=== PATIENT | male | born 1995 | race African-American/Black ===

== ENCOUNTER 2016-12-21 12:27 | Emergency (ER) | payer OTHER ==
[2016-12-21] MEDS ORDERED: CLINDAMYCIN 600 MG/50 ML PREMIX BAG As Ordered ONE (13:13)
[2016-12-21] MEDS ORDERED: methylPREDNISolone INJ 40 MG/1 ML VIAL (J2920) As Ordered ONE (13:13)
[2016-12-21] MEDS ORDERED: ISOVUE-370 76% 100ML VIAL (Q9967) As Ordered ONE (13:23)
[2016-12-21 13:26] LABS: BASO % 0.5 % (0.0-1.0); EOS # 0.1 K/mm3 (0.0-0.50); EOS % 1.8 % (0.0-3.0); LARGE UNSTAINED CELL # 0.2 K/mm3 (0.0-0.4); LARGE UNSTAINED CELL % 4.1 % (0.0-4.0); LYMPH # 1.1 K/mm3 (1.5-6.5); LYMPH % 18.3 % (24.0-44.0); MEAN CORPUSCULAR HEMOGLOBIN 30.2 pg (27.0-33.0); MEAN CORPUSCULAR VOLUME 88.9 fl (80.0-96.0); MONO # 0.6 K/mm3 (0.0-0.8); MONO % 10.5 % (0.0-5.0); NEUTROPHILS # 3.9 K/mm3 (1.8-7.7); NEUTROPHILS % 64.9 % (36.0-66.0); PLATELET COUNT, AUTOMATED 239 k/mm3 (150-450); RED CELL DISTRIBUTION WIDTH 11.2 % (11.5-14.5)
[2016-12-21 13:45] LABS: ANION GAP 5 MEQ/L (8-16); BLOOD UREA NITROGEN 11 MG/DL (7-18); CARBON DIOXIDE LEVEL 34 MEQ/L (21-32); CHLORIDE LEVEL 102 MEQ/L (98-107); GLOMERULAR FILTRATION RATE > 60.0 (>60); GLUCOSE, FASTING 70 MG/DL (70-105); POTASSIUM SERUM 3.8 MEQ/L (3.5-5.1); SODIUM LEVEL 141 MEQ/L (136-145)
[2016-12-21 14:09] LABS: ERYTHROCYTE SEDIMENTATION RATE 23 mm/hr (0-15)
--- NOTE | 2016-12-21 14:48 | EDDOCDS ---
Physician Documentation [facility] Name: Matthew Chen Age: 21 yrs Sex: Male : 1995 Arrival Date: 12/21/2016 Time: 12:27 Bed I7 / Private MD: Unknown Pcp Disposition: 12/21/16 14:30 Discharged to Home/Self Care. Impression: Acute tonsillitis, unspecified - RIGHT-SIDED ONLY. - Condition is Stable. - Discharge Instructions: Tonsillitis. - Prescriptions for Clindamycin HCl 300 mg Oral Capsule - take 1 capsule by ORAL route every 6 hours; 40 capsule. - Medication Reconciliation, Local Pharmacy Hours form. - Follow up: Emergency Department; When: As needed; Reason: Worsening of conditions. [facility]; When: Call to arrange an appointment; Reason: Recheck today's complaints, Continuance of care, To establish care. - Problem is new. - Symptoms are unchanged. Historical: - Allergies: no known allergies; - Home Meds: 1. none - PMHx: left sided tonsil removal; - PSHx: l-tonsillectomy; circumcision 2014; - Social history: Smoking status: Patient states was never smoker of tobacco. Patient/guardian denies using alcohol, street drugs, No barriers to communication noted, The patient speaks fluent [place], Speaks appropriately for age. - Family history: Not pertinent. - : The pt / caregiver states he / she is not on anticoagulants. Home medication list is obtained from the patient. - Exposure Risk Screening:: None identified. Vital Signs: 12/21 12:29 BP 154 / 59; Pulse 71; Resp 16; Temp 98.2(O); Pulse Ox 100% on R/A; Weight 77.56 kg / sew 170.99 lbs; Height 6 ft. 1 in. (185.42 cm); Pain 6/10; 14:44 BP 122 / 68; Pulse 69; Resp 16; Temp 97.8(T); Pulse Ox 98% on R/A; jo3 12:29 Body Mass Index 22.56 (77.56 kg, 185.42 cm) sew MDM: 12:57 Strep Screen, Nursing ordered. dt4 12:57 IV Saline Lock ordered. dt4 12:57 NS 0.9% 500 ml IV at bolus once ordered. dt4 12:57 Clindamycin 600 mg IVPB once over 30 mins; dilute in 50mL of NS or D5W ordered. dt4 12:57 Solu-MEDROL 80 mg IVP once ordered. dt4 12:58 CT Neck With Contrast Ordered. EDMS 12:58 CBC with Diff Ordered. EDMS 12:58 Basic Metabolic Profile Ordered. EDMS 12:58 CRP Ordered. EDMS 12:58 Sed Rate Ordered. EDMS 12:58 GATS (NEGATIVE STREP SCREEN) Ordered. EDMS 13:02 Financial registration complete. lg 13:28 [facility] Payment Agreement was scanned into [employer] and attached to record. lg Administered Medications: 13:25 Drug: Clindamycin 600 mg [clindamycin 600 mg/50 mL in 5 % dextrose intravenous jo3 piggyback] Route: IVPB; Infused Over: 30 mins; Site: right antecubital; 14:47 Follow up: IV Status: Completed infusion jo3 13:25 Drug: Solu-MEDROL 80 mg [Solu-Medrol 500 mg intravenous solution (80 mg)] Route: IVP; jo3 Site: right antecubital; 13:26 Drug: NS 0.9% 500 ml [sodium chloride 0.9 % intravenous solution] Route: IV; Rate: jo3 bolus; Site: right antecubital; 14:47 Follow up: IV Status: Completed infusion jo3 Signatures: Dispatcher MedHost Cecil Zhong,RN RN Enid Waddell, Rashad Reg Antonette Padron RN RN jo3 Conner, Teresa, RN RN ttb Tschudi, Diane, PA-C PA-C dt4 The chart was reviewed and I authenticate all verbal orders and agree with the evaluation and treatment provided.Attachments: 13:28 [facility] Payment Agreement lg MTDD
--- NOTE | 2016-12-21 14:48 | EDDOCDS ---
Nurse's Notes [facility] Name: Matthew Chen Age: 21 yrs Sex: Male : 1995 Arrival Date: 12/21/2016 Time: 12:27 Bed I7 Private MD: Unknown Pcp Diagnosis: Acute tonsillitis, [id number] ONLY Presentation: 12/21 12:29 Presenting complaint: Patient states: right sided tonsil pain x3 days. Risk factors: ttb Stridor is not present. Drooling is not present. Shortness of breath is not present. Cellulitis is not present. Adult Sepsis Screening: The patient does not have new or worsening altered mentation. Patient's respiratory rate is less than 22. Systolic blood pressure is greater than 100. Patient has a qSOFA score of 0- Negative Sepsis Screen. Suicide/Homicide risk assessment- the patient denies having any suicidal and/or homicidal ideations and does not present with any other emotional, behavioral or mental health complaints. 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 Transition of care: patient was not received from another setting of care. 12:29 Acuity: MARCIO Level 4 ttb 12:29 Method Of Arrival: Walkin/Carried/Asstd ttb Triage Assessment: 12:30 General: Appears in no apparent distress, well nourished, well groomed, Behavior is ttb appropriate for age, cooperative, pleasant. Pain: Location: throat Pain currently is 6 out of 10 on a pain scale. HIV screening NA for this visit Offered previously. Neurological: Level of Consciousness is awake, alert. EENT: Reports pain in throat. Respiratory: No deficits noted. Airway is patent Denies shortness of breath. Derm: Skin is normal. Historical: - Allergies: no known allergies; - Home Meds: 1. none - PMHx: left sided tonsil removal; - PSHx: l-tonsillectomy; circumcision 2014; - Social history: Smoking status: Patient states was never smoker of tobacco. Patient/guardian denies using alcohol, street drugs, No barriers to communication noted, The patient speaks fluent [place], Speaks appropriately for age. - Family history: Not pertinent. - : The pt / caregiver states he / she is not on anticoagulants. Home medication list is obtained from the patient. - Exposure Risk Screening:: None identified. Screenin:20 Screening information is obtained from the patient. Fall risk: No risks identified. jmk Assistance ADL's: requires no assistance with activities of daily living. Abuse/DV Screen: The patient / caregiver reports he/she is:. Nutritional screening: No deficits noted. Advance Directives: Currently, there is no health care proxy. There is no active DNR order. There is no living will. There is no Power of Pipe Bowl Paint Trimmer. Advance directive information has not previously been placed in an [facility] medical record. home support is adequate. Assessment: 12:47 EENT: Throat right tonsil larger than left. white patch noted to right tonsil. srm 13:20 General: Appears in no apparent distress, laughing and jovial with female visitor. jmk Moist pink oral mucosa. right tonsilar swelling with patchy exudate on right. easily accommodates own saliva and vocalizes. Palpable lymphadenopathy on right.. 14:44 General: Appears in no apparent distress, comfortable, Behavior is appropriate for age, jo3 cooperative. Neurological: No deficits noted. Level of Consciousness is awake, alert, Oriented to person, place, time. Cardiovascular: No deficits noted. Respiratory: Airway is patent Respiratory effort is even, unlabored. Derm: Skin is intact, Skin is dry, Skin is normal, Skin temperature is warm. Vital Signs: 12:29 BP 154 / 59; Pulse 71; Resp 16; Temp 98.2(O); Pulse Ox 100% on R/A; Weight 77.56 kg; sew Height 6 ft. 1 in. (185.42 cm); Pain 6/10; 14:44 BP 122 / 68; Pulse 69; Resp 16; Temp 97.8(T); Pulse Ox 98% on R/A; jo3 12:29 Body Mass Index 22.56 (77.56 kg, 185.42 cm) sew Vitals: 12:29 Log In Time: December 21, 2016 at 12:27. sew 12:58 Strep Screen is obtained and tested: Negative, a GATSNEG culture is ordered in [facility] and sent. ED Course: 12:28 Patient visited by Audra Adair. sew 12:28 Unknown Pcp is Private Physician. sew 12:28 Patient moved to Waiting sew 12:29 Patient visited by Audra Adair. sew 12:29 Patient moved to Pre RCE sew 12:30 Triage Initiated ttb 12:32 Patient moved to Triage 2 ttb 12:47 Patient visited by Malena Pace RN. srm 12:51 [facility]. dt4 12:51 Yesenia Mcnulty MD is Attending Physician. dt4 12:52 Patient visited by Sharda Dasilva PA-C. dt4 12:55 Patient moved to I7 srm 13:20 The patient / caregiver is instructed regarding the plan of care and ED course. jmk 13:20 Sed Rate Sent. jmk 13:20 CRP Sent. jmk 13:20 Basic Metabolic Profile Sent. jmk 13:20 CBC with Diff Sent. jmk 13:20 Inserted saline lock: 20 gauge in right antecubital area. jmk 13:22 Patient visited by Cecil Alvarado RN. jmk 13:27 Patient name changed from Matthew\S\\S\Chen\S\ to Matthew\S\Clarence\S\Chen. EDMS 13:28 [facility] Payment Agreement was scanned into [email or web address] and attached to record. 14:29 [facility] is Referral Physician. dt4 14:44 Discontinued IV lock intact, bleeding controlled, pressure dressing applied, No jo3 redness/swelling at site. No procedures done that require assistance. Administered Medications: 13:25 Drug: Clindamycin 600 mg [clindamycin 600 mg/50 mL in 5 % dextrose intravenous jo3 piggyback] Route: IVPB; Infused Over: 30 mins; Site: right antecubital; 14:47 Follow up: IV Status: Completed infusion jo3 13:25 Drug: Solu-MEDROL 80 mg [Solu-Medrol 500 mg intravenous solution (80 mg)] Route: IVP; jo3 Site: right antecubital; 13:26 Drug: NS 0.9% 500 ml [sodium chloride 0.9 % intravenous solution] Route: IV; Rate: jo3 bolus; Site: right antecubital; 14:47 Follow up: IV Status: Completed infusion jo3 Order Results: Lab Order: CBC with Diff; SPEC'M 12/21/16 13:18 Test: WHITE BLOOD COUNT; Value: 6.0; Range: 4.0-10.0; Units: K/mm3; Status: F Test: RED BLOOD COUNT; Value: 4.35; Range: 4.30-6.10; Units: M/mm3; Status: F Test: HEMOGLOBIN; Value: 13.1; Range: 14.0-18.0; Abnormal: Below low normal; Units: g/dl; Status: F Test: HEMATOCRIT; Value: 38.7; Range: 42.0-52.0; Abnormal: Below low normal; Units: %; Status: F Test: MEAN CORPUSCULAR VOLUME; Value: 88.9; Range: 80.0-96.0; Units: fl; Status: F Test: MEAN CORPUSCULAR HEMOGLOBIN; Value: 30.2; Range: 27.0-33.0; Units: pg; Status: F Test: MEAN CORPUSCULAR HGB CONC; Value: 34.0; Range: 32.0-36.5; Units: g/dl; Status: F Test: RED CELL DISTRIBUTION WIDTH; Value: 11.2; Range: 11.5-14.5; Abnormal: Below low normal; Units: %; Status: F Test: PLATELET COUNT, AUTOMATED; Value: 239; Range: 150-450; Units: k/mm3; Status: F Test: NEUTROPHILS %; Value: 64.9; Range: 36.0-66.0; Units: %; Status: F Test: LYMPH %; Value: 18.3; Range: 24.0-44.0; Abnormal: Below low normal; Units: %; Status: F Test: MONO %; Value: 10.5; Range: 0.0-5.0; Abnormal: Above high normal; Units: %; Status: F Test: EOS %; Value: 1.8; Range: 0.0-3.0; Units: %; Status: F Test: BASO %; Value: 0.5; Range: 0.0-1.0; Units: %; Status: F Test: LARGE UNSTAINED CELL %; Value: 4.1; Range: 0.0-4.0; Abnormal: Above high normal; Units: %; Status: F Test: NEUTROPHILS #; Value: 3.9; Range: 1.8-7.7; Units: K/mm3; Status: F Test: LYMPH #; Value: 1.1; Range: 1.5-6.5; Abnormal: Below low normal; Units: K/mm3; Status: F Test: MONO #; Value: 0.6; Range: 0.0-0.8; Units: K/mm3; Status: F Test: EOS #; Value: 0.1; Range: 0.0-0.50; Units: K/mm3; Status: F Test: BASO #; Value: 0.0; Range: 0.0-0.2; Units: K/mm3; Status: F Test: LARGE UNSTAINED CELL #; Value: 0.2; Range: 0.0-0.4; Units: K/mm3; Status: F Lab Order: Basic Metabolic Profile; SPEC'M 12/21/16 13:18 Test: GLUCOSE, FASTING; Value: 70; Range: 70-105; Units: MG/DL; Status: F Test: BLOOD UREA NITROGEN; Value: 11; Range: 7-18; Units: MG/DL; Status: F Test: CREATININE FOR GFR; Value: 1.00; Range: 0.70-1.30; Units: MG/DL; Status: F Test: GLOMERULAR FILTRATION RATE; Value: > 60.0; Range: >60; Status: F Test: SODIUM LEVEL; Value: 141; Range: 136-145; Units: MEQ/L; Status: F Test: POTASSIUM SERUM; Value: 3.8; Range: 3.5-5.1; Units: MEQ/L; Status: F Test: CHLORIDE LEVEL; Value: 102; Range: 98-107; Units: MEQ/L; Status: F Test: CARBON DIOXIDE LEVEL; Value: 34; Range: 21-32; Abnormal: Above high normal; Units: MEQ/L; Status: F Test: ANION GAP; Value: 5; Range: 8-16; Abnormal: Below low normal; Units: MEQ/L; Status: F Test: CALCIUM LEVEL; Value: 9.0; Range: 8.5-10.1; Units: MG/DL; Status: F Test Note: ; Units are mL/min/1.73 m2 Chronic Kidney Disease Staging per NKF: Stage I & II GFR >=60 Normal to Mildly Decreased Stage III GFR 30-59 Moderately Decreased Stage IV GFR 15-29 Severely Decreased Stage V GFR <15 Very Little GFR Left ESRD GFR <15 on PATTERN MAKER Lab Order: CRP; SPEC'M 12/21/16 13:18 Test: C REACTIVE PROTEIN QUANTITATIV; Value: 1.84; Range: 0.00-0.30; Abnormal: Above high normal; Units: MG/DL; Status: F Lab Order: Sed Rate; SPEC'M 12/21/16 13:18 Test: ERYTHROCYTE SEDIMENTATION RATE; Value: 23; Range: 0-15; Abnormal: Above high normal; Units: mm/hr; Status: F Outcome: 14:30 Discharge ordered by Provider. dt4 14:44 Discharge Assessment: Patient awake, alert and oriented x 3. No cognitive and/or jo3 functional deficits noted. Patient verbalized understanding of disposition instructions. patient administered narcotics - no. The following High Risk Discharge criteria are identified: None. Discharged to home ambulatory, with significant other. Condition: stable Condition: improved. Discharge instructions given to patient, Instructed on discharge instructions, follow up and referral plans. medication usage, Demonstrated understanding of instructions, medications, Pt was receptive of discharge instructions/ teaching. Prescriptions given X 1. CT Study completed. Property sent home with patient. 14:47 Patient left the ED. jo3 Signatures: Dispatcher Med[employer] EDMS Cecil Alvarado,RN RN Malena Serrano RN Enid Hui, Antonette Dela Cruz lg, RN RN jo3 Wallace, Sarah sew Conner, Teresa, RN RN ttb Tschudi, Diane, PA-C PA-C dt4 MTDLedy
--- NOTE | 2016-12-21 15:07 | REP ---
CT study of the neck soft tissues with IV contrast: History: Right-sided tonsillar swelling. Question abscess. CT contrast dose: 75 ml of Isovue [address] findings: Digital lateral and frontal views of the soft tissues of the neck are unremarkable. Soft tissue CT neck images demonstrate enlargement of the right tonsil compared to the left. However, no low density fluid collection is seen in the tonsillar or peritonsillar soft tissues to suggest an abscess. Submandibular and parotid glands are normal and symmetric. There is some dental amalgam generated spray artifact. No vascular abnormality is seen. There are enlarged right anterior cervical lymph nodes. The largest of these measures approximately 1.8 x 2.8 cm. No other evidence of fluid collection is seen. Visualized paranasal sinuses are clear. There is mild mucous retention cyst in the floor of each maxillary sinus. No mandibular or maxillary bony destructive lesion. Impression: Asymmetric tonsillar soft tissues with swelling on the right. No abscess is appreciated. Right anterior cervical lymphadenopathy is seen. Signed by Shadi Paiz MD 12/21/2016 04:22 P
--- NOTE | 2016-12-23 15:49 | EDDOCDS ---
Physician Documentation [facility] Name: Matthew Cehn Age: 21 yrs Sex: Male : 1995 Arrival Date: 12/21/2016 Time: 12:27 Bed I7 / Private MD: Unknown Pcp Disposition: 12/21/16 14:30 Discharged to Home/Self Care. Impression: Acute tonsillitis, unspecified - RIGHT-SIDED ONLY. - Condition is Stable. - Discharge Instructions: Tonsillitis. - Prescriptions for Clindamycin HCl 300 mg Oral Capsule - take 1 capsule by ORAL route every 6 hours; 40 capsule. - Medication Reconciliation, Local Pharmacy Hours form. - Follow up: Emergency Department; When: As needed; Reason: Worsening of conditions. [facility]; When: Call to arrange an appointment; Reason: Recheck today's complaints, Continuance of care, To establish care. - Problem is new. - Symptoms are unchanged. Historical: - Allergies: no known allergies; - Home Meds: 1. none - PMHx: left sided tonsil removal; - PSHx: l-tonsillectomy; circumcision 2014; - Social history: Smoking status: Patient states was never smoker of tobacco. Patient/guardian denies using alcohol, street drugs, No barriers to communication noted, The patient speaks fluent [place], Speaks appropriately for age. - Family history: Not pertinent. - : The pt / caregiver states he / she is not on anticoagulants. Home medication list is obtained from the patient. - Exposure Risk Screening:: None identified. Vital Signs: 12/21 12:29 BP 154 / 59; Pulse 71; Resp 16; Temp 98.2(O); Pulse Ox 100% on R/A; Weight 77.56 kg / sew 170.99 lbs; Height 6 ft. 1 in. (185.42 cm); Pain 6/10; 14:44 BP 122 / 68; Pulse 69; Resp 16; Temp 97.8(T); Pulse Ox 98% on R/A; jo3 12:29 Body Mass Index 22.56 (77.56 kg, 185.42 cm) sew MDM: 12:57 Strep Screen, Nursing ordered. dt4 12:57 IV Saline Lock ordered. dt4 12:57 NS 0.9% 500 ml IV at bolus once ordered. dt4 12:57 Clindamycin 600 mg IVPB once over 30 mins; dilute in 50mL of NS or D5W ordered. dt4 12:57 Solu-MEDROL 80 mg IVP once ordered. dt4 12:58 CT Neck With Contrast Ordered. EDMS 12:58 CBC with Diff Ordered. EDMS 12:58 Basic Metabolic Profile Ordered. EDMS 12:58 CRP Ordered. EDMS 12:58 Sed Rate Ordered. EDMS 12:58 GATS (NEGATIVE STREP SCREEN) Ordered. EDMS 13:02 Financial registration complete. lg 13:28 [facility] Payment Agreement was scanned into [email or web address] and attached to record. lg 12/22 11:46 T-Sheet-- Draft Copy was scanned into [email or web address] and attached to record. gb 17:01 Radiology Report was scanned into [email or web address] and attached to record. gb Administered Medications: 12/21 13:25 Drug: Clindamycin 600 mg [clindamycin 600 mg/50 mL in 5 % dextrose intravenous jo3 piggyback] Route: IVPB; Infused Over: 30 mins; Site: right antecubital; 14:47 Follow up: IV Status: Completed infusion jo3 13:25 Drug: Solu-MEDROL 80 mg [Solu-Medrol 500 mg intravenous solution (80 mg)] Route: IVP; jo3 Site: right antecubital; 13:26 Drug: NS 0.9% 500 ml [sodium chloride 0.9 % intravenous solution] Route: IV; Rate: jo3 bolus; Site: right antecubital; 14:47 Follow up: IV Status: Completed infusion jo3 Signatures: Dispatcher [employer] Cecil Zhong RN RN jmk Barnhardt, Gloria, Reg Reg gb Enid Orourke, Reg Reg lg Antonette Lilly RN RN jo3 Katty Jimenez RN RN ttb Tschudi, Diane, PA-C PA-C dt4 The chart was reviewed and I authenticate all verbal orders and agree with the evaluation and treatment provided.Attachments: 13:28 [facility] Payment Agreement 12/22 11:46 T-Sheet-- Draft Copy gb Chart Complete MTDD
--- NOTE | 2016-12-23 15:49 | EDDOCDS ---
Physician Documentation [facility] Name: Matthew Chen Age: 21 yrs Sex: Male : 1995 Arrival Date: 12/21/2016 Time: 12:27 Bed I7 / Private MD: Unknown Pcp Disposition: 12/21/16 14:30 Discharged to Home/Self Care. Impression: Acute tonsillitis, unspecified - RIGHT-SIDED ONLY. - Condition is Stable. - Discharge Instructions: Tonsillitis. - Prescriptions for Clindamycin HCl 300 mg Oral Capsule - take 1 capsule by ORAL route every 6 hours; 40 capsule. - Medication Reconciliation, Local Pharmacy Hours form. - Follow up: Emergency Department; When: As needed; Reason: Worsening of conditions. Follow [facility]: [facility]; When: Call to arrange an appointment; Reason: Recheck today's complaints, Continuance of care, To establish care. - Problem is new. - Symptoms are unchanged. Historical: - Allergies: no known allergies; - Home Meds: 1. none - PMHx: left sided tonsil removal; - PSHx: l-tonsillectomy; circumcision 2014; - Social history: Smoking status: Patient states was never smoker of tobacco. Patient/guardian denies using alcohol, street drugs, No barriers to communication noted, The patient speaks fluent [place], Speaks appropriately for age. - Family history: Not pertinent. - : The pt / caregiver states he / she is not on anticoagulants. Home medication list is obtained from the patient. - Exposure Risk Screening:: None identified. Vital Signs: 12/21 12:29 BP 154 / 59; Pulse 71; Resp 16; Temp 98.2(O); Pulse Ox 100% on R/A; Weight 77.56 kg / sew 170.99 lbs; Height 6 ft. 1 in. (185.42 cm); Pain 6/10; 14:44 BP 122 / 68; Pulse 69; Resp 16; Temp 97.8(T); Pulse Ox 98% on R/A; jo3 12:29 Body Mass Index 22.56 (77.56 kg, 185.42 cm) sew MDM: 12:57 Strep Screen, Nursing ordered. dt4 12:57 IV Saline Lock ordered. dt4 12:57 NS 0.9% 500 ml IV at bolus once ordered. dt4 12:57 Clindamycin 600 mg IVPB once over 30 mins; dilute in 50mL of NS or D5W ordered. dt4 12:57 Solu-MEDROL 80 mg IVP once ordered. dt4 12:58 CT Neck With Contrast Ordered. EDMS 12:58 CBC with Diff Ordered. EDMS 12:58 Basic Metabolic Profile Ordered. EDMS 12:58 CRP Ordered. EDMS 12:58 Sed Rate Ordered. EDMS 12:58 GATS (NEGATIVE STREP SCREEN) Ordered. EDMS 13:02 Financial registration complete. lg 13:28 [facility] Payment Agreement was scanned into [employer] and attached to record. lg 12/22 11:46 T-Sheet-- Draft Copy was scanned into [employer] and attached to record. gb 17:01 Radiology Report was scanned into [employer] and attached to record. gb Administered Medications: 12/21 13:25 Drug: Clindamycin 600 mg [clindamycin 600 mg/50 mL in 5 % dextrose intravenous jo3 piggyback] Route: IVPB; Infused Over: 30 mins; Site: right antecubital; 14:47 Follow up: IV Status: Completed infusion jo3 13:25 Drug: Solu-MEDROL 80 mg [Solu-Medrol 500 mg intravenous solution (80 mg)] Route: IVP; jo3 Site: right antecubital; 13:26 Drug: NS 0.9% 500 ml [sodium chloride 0.9 % intravenous solution] Route: IV; Rate: jo3 bolus; Site: right antecubital; 14:47 Follow up: IV Status: Completed infusion jo3 Signatures: Dispatcher [employer]Ho Cecil Zhong RN RN jmk Barnhardt, Gloria, Reg Reg gb Enid Orourke, Reg Reg lg Antonette Lilly RN RN jo3 Katty Jimenez RN RN ttb Tschudi, Diane, PA-C PA-C dt4 The chart was reviewed and I authenticate all verbal orders and agree with the evaluation and treatment provided.Attachments: 13:28 [facility] Payment Agreement 12/22 11:46 T-Sheet-- Draft Copy gb Chart Complete MTDD
--- NOTE | 2016-12-23 15:49 | EDDOCDS ---
[facility] Name: Matthew Chen Age: 21 yrs Sex: Male : 1995 Arrival Date: 12/21/2016 Time: 12:27 Bed I7 Private MD: Unknown Pcp Diagnosis: Acute tonsillitis, [id number] ONLY Presentation: 12/21 12:29 Presenting complaint: Patient states: right sided tonsil pain x3 days. Risk factors: ttb Stridor is not present. Drooling is not present. Shortness of breath is not present. Cellulitis is not present. Adult Sepsis Screening: The patient does not have new or worsening altered mentation. Patient's respiratory rate is less than 22. Systolic blood pressure is greater than 100. Patient has a qSOFA score of 0- Negative Sepsis Screen. Suicide/Homicide risk assessment- the patient denies having any suicidal and/or homicidal ideations and does not present with any other emotional, behavioral or mental health complaints. 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 Transition of care: patient was not received from another setting of care. 12:29 Acuity: MARCIO Level 4 ttb 12:29 Method Of Arrival: Walkin/Carried/Asstd ttb Triage Assessment: 12:30 General: Appears in no apparent distress, well nourished, well groomed, Behavior is ttb appropriate for age, cooperative, pleasant. Pain: Location: throat Pain currently is 6 out of 10 on a pain scale. HIV screening NA for this visit Offered previously. Neurological: Level of Consciousness is awake, alert. EENT: Reports pain in throat. Respiratory: No deficits noted. Airway is patent Denies shortness of breath. Derm: Skin is normal. Historical: - Allergies: no known allergies; - Home Meds: 1. none - PMHx: left sided tonsil removal; - PSHx: l-tonsillectomy; circumcision 2014; - Social history: Smoking status: Patient states was never smoker of tobacco. Patient/guardian denies using alcohol, street drugs, No barriers to communication noted, The patient speaks fluent Tajik, Speaks appropriately for age. - Family history: Not pertinent. - : The pt / caregiver states he / she is not on anticoagulants. Home medication list is obtained from the patient. - Exposure Risk Screening:: None identified. Screenin:20 Screening information is obtained from the patient. Fall risk: No risks identified. jmk Assistance ADL's: requires no assistance with activities of daily living. Abuse/DV Screen: The patient / caregiver reports he/she is:. Nutritional screening: No deficits noted. Advance Directives: Currently, there is no health care proxy. There is no active DNR order. There is no living will. There is no Power of Software Applications Designer. Advance directive information has not previously been placed in an [facility] medical record. home support is adequate. Assessment: 12:47 EENT: Throat right tonsil larger than left. white patch noted to right tonsil. srm 13:20 General: Appears in no apparent distress, laughing and jovial with female visitor. jmk Moist pink oral mucosa. right tonsilar swelling with patchy exudate on right. easily accommodates own saliva and vocalizes. Palpable lymphadenopathy on right.. 14:44 General: Appears in no apparent distress, comfortable, Behavior is appropriate for age, jo3 cooperative. Neurological: No deficits noted. Level of Consciousness is awake, alert, Oriented to person, place, time. Cardiovascular: No deficits noted. Respiratory: Airway is patent Respiratory effort is even, unlabored. Derm: Skin is intact, Skin is dry, Skin is normal, Skin temperature is warm. Vital Signs: 12:29 BP 154 / 59; Pulse 71; Resp 16; Temp 98.2(O); Pulse Ox 100% on R/A; Weight 77.56 kg; sew Height 6 ft. 1 in. (185.42 cm); Pain 6/10; 14:44 BP 122 / 68; Pulse 69; Resp 16; Temp 97.8(T); Pulse Ox 98% on R/A; jo3 12:29 Body Mass Index 22.56 (77.56 kg, 185.42 cm) sew Vitals: 12:29 Log In Time: December 21, 2016 at 12:27. sew 12:58 Strep Screen is obtained and tested: Negative, a GATSNEG culture is ordered in [facility] and sent. ED Course: 12:28 Patient visited by Audra Adair. sew 12:28 Unknown Pcp is Private Physician. sew 12:28 Patient moved to Waiting sew 12:29 Patient visited by Audra Adair. sew 12:29 Patient moved to Pre RCE sew 12:30 Triage Initiated ttb 12:32 Patient moved to Triage 2 ttb 12:47 Patient visited by Malena Pace RN. srm 12:51 [facility]il[facility]-C [facility] dt4 12:51 Yesenia Mcnulty MD is Attending Physician. dt4 12:52 Patient visited by Sharda Dasilva PA-C. dt4 12:55 Patient moved to I7 srm 13:20 The patient / caregiver is instructed regarding the plan of care and ED course. jmk 13:20 Sed Rate Sent. jmk 13:20 CRP Sent. jmk 13:20 Basic Metabolic Profile Sent. jmk 13:20 CBC with Diff Sent. jmk 13:20 Inserted saline lock: 20 gauge in right antecubital area. jmk 13:22 Patient visited by Cecil Alvarado RN. jmk 13:27 Patient name changed from Matthew\S\\S\Chen\S\ to Matthew\S\Clarence\S\Chen. EDMS 13:28 [facility] [place] was [place] into [employer] and attached to record. lg 14:29 [facility] is Referral Physician. dt4 14:44 Discontinued IV lock intact, bleeding controlled, pressure dressing applied, No jo3 redness/swelling at site. No procedures done that require assistance. 15:52 CT Neck With Contrast Returned. EDMS 02 11:46 T-Sheet-- Draft Copy was scanned into [employer] and attached to record. gb 17:01 Radiology Report was scanned into [employer] and attached to record. gb Administered Medications: 12/21 13:25 Drug: Clindamycin 600 mg [clindamycin 600 mg/50 mL in 5 % dextrose intravenous jo3 piggyback] Route: IVPB; Infused Over: 30 mins; Site: right antecubital; 14:47 Follow up: IV Status: Completed infusion jo3 13:25 Drug: Solu-MEDROL 80 mg [Solu-Medrol 500 mg intravenous solution (80 mg)] Route: IVP; jo3 Site: right antecubital; 13:26 Drug: NS 0.9% 500 ml [sodium chloride 0.9 % intravenous solution] Route: IV; Rate: jo3 bolus; Site: right antecubital; 14:47 Follow up: IV Status: Completed infusion jo3 Order Results: Lab Order: CBC with Diff; SPEC'M 12/21/16 13:18 Test: WHITE BLOOD COUNT; Value: 6.0; Range: 4.0-10.0; Units: K/mm3; Status: F Test: RED BLOOD COUNT; Value: 4.35; Range: 4.30-6.10; Units: M/mm3; Status: F Test: HEMOGLOBIN; Value: 13.1; Range: 14.0-18.0; Abnormal: Below low normal; Units: g/dl; Status: F Test: HEMATOCRIT; Value: 38.7; Range: 42.0-52.0; Abnormal: Below low normal; Units: %; Status: F Test: MEAN CORPUSCULAR VOLUME; Value: 88.9; Range: 80.0-96.0; Units: fl; Status: F Test: MEAN CORPUSCULAR HEMOGLOBIN; Value: 30.2; Range: 27.0-33.0; Units: pg; Status: F Test: MEAN CORPUSCULAR HGB CONC; Value: 34.0; Range: 32.0-36.5; Units: g/dl; Status: F Test: RED CELL DISTRIBUTION WIDTH; Value: 11.2; Range: 11.5-14.5; Abnormal: Below low normal; Units: %; Status: F Test: PLATELET COUNT, AUTOMATED; Value: 239; Range: 150-450; Units: k/mm3; Status: F Test: NEUTROPHILS %; Value: 64.9; Range: 36.0-66.0; Units: %; Status: F Test: LYMPH %; Value: 18.3; Range: 24.0-44.0; Abnormal: Below low normal; Units: %; Status: F Test: MONO %; Value: 10.5; Range: 0.0-5.0; Abnormal: Above high normal; Units: %; Status: F Test: EOS %; Value: 1.8; Range: 0.0-3.0; Units: %; Status: F Test: BASO %; Value: 0.5; Range: 0.0-1.0; Units: %; Status: F Test: LARGE UNSTAINED CELL %; Value: 4.1; Range: 0.0-4.0; Abnormal: Above high normal; Units: %; Status: F Test: NEUTROPHILS #; Value: 3.9; Range: 1.8-7.7; Units: K/mm3; Status: F Test: LYMPH #; Value: 1.1; Range: 1.5-6.5; Abnormal: Below low normal; Units: K/mm3; Status: F Test: MONO #; Value: 0.6; Range: 0.0-0.8; Units: K/mm3; Status: F Test: EOS #; Value: 0.1; Range: 0.0-0.50; Units: K/mm3; Status: F Test: BASO #; Value: 0.0; Range: 0.0-0.2; Units: K/mm3; Status: F Test: LARGE UNSTAINED CELL #; Value: 0.2; Range: 0.0-0.4; Units: K/mm3; Status: F Lab Order: Basic Metabolic Profile; [facility] 12/21/16 13:18 Test: GLUCOSE, FASTING; Value: 70; Range: 70-105; Units: MG/DL; Status: F Test: BLOOD UREA NITROGEN; Value: 11; Range: 7-18; Units: MG/DL; Status: F Test: CREATININE FOR GFR; Value: 1.00; Range: 0.70-1.30; Units: MG/DL; Status: F Test: GLOMERULAR FILTRATION RATE; Value: > 60.0; Range: >60; Status: F Test: SODIUM LEVEL; Value: 141; Range: 136-145; Units: MEQ/L; Status: F Test: POTASSIUM SERUM; Value: 3.8; Range: 3.5-5.1; Units: MEQ/L; Status: F Test: CHLORIDE LEVEL; Value: 102; Range: 98-107; Units: MEQ/L; Status: F Test: CARBON DIOXIDE LEVEL; Value: 34; Range: 21-32; Abnormal: Above high normal; Units: MEQ/L; Status: F Test: ANION GAP; Value: 5; Range: 8-16; Abnormal: Below low normal; Units: MEQ/L; Status: F Test: CALCIUM LEVEL; Value: 9.0; Range: 8.5-10.1; Units: MG/DL; Status: F Test Note: ; Units are mL/min/1.73 m2 Chronic Kidney Disease Staging per NKF: Stage I & II GFR >=60 Normal to Mildly Decreased Stage III GFR 30-59 Moderately Decreased Stage IV GFR 15-29 Severely Decreased Stage V GFR <15 Very Little GFR Left ESRD GFR <15 on PSYCHOPAEDIC NURSE Lab Order: CRP; SPEC12/21/16 13:18 Test: C REACTIVE PROTEIN QUANTITATIV; Value: 1.84; Range: 0.00-0.30; Abnormal: Above high normal; Units: MG/DL; Status: F Lab Order: Sed Rate; SPEC12/21/16 13:18 Test: ERYTHROCYTE SEDIMENTATION RATE; Value: 23; Range: 0-15; Abnormal: Above high normal; Units: mm/hr; Status: F Lab Order: GATS (NEGATIVE STREP SCREEN); SPEC12/21/16 12:46 Test: GATS CULTURE (NEG STREP SCR); Value: GATS RESULT NEGATIVE FOR STREP PYOGENES (GROUP A); Status: F Test: GATS CULTURE (NEG STREP SCR); Value: <EXTERNAL COMMENT eCWMed> FULL REPORT IN LAB NOTES (eCW and Medent).; Status: F Radiology Order: CT Neck With Contrast Test: CT Neck With Contrast REASON FOR EXAMINATION: RIGHT-SIDED TONSILLAR SWELLING, ?ABSCESS; CT study of the neck soft tissues with IV contrast:; ; History: Right-sided tonsillar swelling. Question abscess.; ; CT contrast dose: 75 ml of Isovue 370 is administered intravenously.; ; CT findings: Digital lateral and frontal views of the soft tissues of the neck; are unremarkable. Soft tissue CT neck images demonstrate enlargement of the; right tonsil compared to the left. However, no low density fluid collection is; seen in the tonsillar or peritonsillar soft tissues to suggest an abscess.; Submandibular and parotid glands are normal and symmetric. There is some dental; amalgam generated spray artifact. No vascular abnormality is seen. There are; enlarged right anterior cervical lymph nodes. The largest of these measures; approximately 1.8 x 2.8 cm. No other evidence of fluid collection is seen.; Visualized paranasal sinuses are clear. There is mild mucous retention cyst in; the floor of each maxillary sinus. No mandibular or maxillary bony destructive; lesion.; ; Impression:; ; Asymmetric tonsillar soft tissues with swelling on the right. No abscess is; appreciated. Right anterior cervical lymphadenopathy is seen.; ; ; Signed by; Shadi Paiz MD 12/21/2016 04:22 P; Outcome: 14:30 Discharge ordered by Provider. dt4 14:44 Discharge Assessment: Patient awake, alert and oriented x 3. No cognitive and/or jo3 functional deficits noted. Patient verbalized understanding of disposition instructions. patient administered narcotics - no. The following High Risk Discharge criteria are identified: None. Discharged to home ambulatory, with significant other. Condition: stable Condition: improved. Discharge instructions given to patient, Instructed on discharge instructions, follow up and referral plans. medication usage, Demonstrated understanding of instructions, medications, Pt was receptive of discharge instructions/ teaching. Prescriptions given X 1. CT Study completed. Property sent home with patient. 14:47 Patient left the ED. jo3 Signatures: Dispatcher [employer] EDCecil Lopes,RN RN Malena Serrano RN RN [facility] Jerel, Cynthia, Reg Reg gb Enid Orourke, Reg Reg lg Antonette Lilly RN RN jo3 Wallace, Sarah sew Conner, Teresa, RN RN ttb Tschudi, Diane, NIKHIL PAMary Ann dt4 Chart Complete MTDLedy
== END 2016-12-21 14:47 | disposition home or self-care (01) ==
LOC: M ED 12:27
DX: J03.90 Acute tonsillitis, unspecified (principal)
CPT/HCPCS: 70491; 80048; 85025; 85652; 86140; 87880; 96365; 96375; 99284; J2920; Q9967